=== PATIENT | female | born 1970 | race Hispanic/Latino ===

== ENCOUNTER 2016-07-05 11:17 | Emergency (ER) | payer MEDICAID ==
--- NOTE | 2016-07-05 13:37 | XRay Report ---
LEFT HAND: History: Pain after trauma. The bony architecture is intact. Bony alignment is normal. No soft tissue abnormalities are seen. The joint spaces appear preserved. IMPRESSION: Normal left hand.
[2016-07-05] MEDS ORDERED: NORCO 5/325 PO ONE (14:35)
--- NOTE | 2016-07-05 14:37 | Emergency Department Report ---
Upper Extremity - HPI Chief Complaint: Extremity Injury, Upper Stated Complaint: LEFT MIDDLE FINGER PAIN Time Seen by Provider: 07/05/16 14:04 Upper Extremity: Left Middle Finger (pain and swelling) Mechanism: Crush Severity: severe Symptoms: Yes Pain with Movement (left middle finger), Yes Limited Range of Movement (left middle finger), Yes Swelling (left middle finger), No Deformity , No Numbness, No Weakness, No Bruising/Ecchymosis, No Laceration or Abrasion Other History: This patient patient here complaining the left middle finger after injury. Reports pain is 9 and a 10 and took Motrin without any relief. He is reporting swelling and painful to move. Her blood pressure is elevated and she is on blood pressure medication but she says she didn't take this morning because she was intermittentpain. Denies any numbness or tingling. ED Review of Systems ROS: Stated complaint: LEFT MIDDLE FINGER PAIN Other details as noted in HPI Comment: All other systems reviewed and negative Constitutional: denies: chills, fever Respiratory: no symptoms reported Cardiovascular: denies: chest pain, palpitations, edema, syncope Gastrointestinal: denies: nausea, vomiting Musculoskeletal: joint swelling, arthralgia. denies: back pain Skin: denies: rash Neurological: denies: headache, numbness, paresthesias ED Past Medical Hx - Past Medical History Previous Medical History?: Yes Hx Hypertension: Yes Hx Heart Attack/AMI: Yes (2014) Hx Diabetes: Yes Hx Deep Vein Thrombosis: Yes Hx Kidney Stones: Yes Hx Asthma: Yes Hx COPD: Yes Additional medical history: DVT-not taking coumadin - Surgical History Past Surgical History?: Yes Hx Cholecystectomy: Yes Additional Surgical History: pelvis surgery. Left muscle of buttocks. IVC filter. TUBAL LIGATION. LITHOTRIPSY. STENT RIGHT KIDNEY - Family History Family history: hypertension - Social History Smoking Status: Current Every Day Smoker Substance Use Type: None - Medications Home Medications: Home Medications Medication Instructions Recorded Confirmed Last Taken Type oxyCODONE /ACETAMINOPHEN [Percocet 1 tab PO Q6HR PRN #12 tablet 03/09/15 Unknown Rx 5/325] traMADol [Ultram 50 MG tab] 50 mg PO Q6HR PRN #20 tablet 12/11/15 Unknown Rx Ibuprofen [Motrin 600 MG tab] 600 mg PO Q8H PRN #15 tablet 07/05/16 Unknown Rx Upper Extremity Exam - Exam General: Vital signs noted. No distress. Alert and acting appropriately. 46-year-old female well-nourished well-developed in no acute distress Head and Torso: No HEENT Abnormality, No Neck Tenderness, No Chest/Lungs Abnormality, No Abdominal Tenderness, No Back Tenderness Shoulder Exam: Yes Normal Range of Motion in Shoulder, No Shoulder Tenderness, No Clavicle Tenderness, No Shoulder Deformity, No AC Joint Tenderness Arm Exam: No Arm/Humerus Tenderness, No Arm Deformity Elbow: Yes Normal Range of Motion in Elbow, No Elbow Tenderness, No Elbow Deformity Forearm: No Forearm Tenderness, No Forearm Deformity, No Pain with Pronation, No Pain with Supination Wrist: Yes Normal ROM in Wrist, No Wrist Tenderness, No Wrist Deformity, No Snuffbox Tenderness, No Pain with Axial Thumb Compression Hand: Yes Digit Tenderness (tenderness to palpate and swelling to left middle finger. Full range of motion but reports painful to move.), Yes Normal ROM in Digit(s) (painful with flexion and extension left middle finger), No Hand Tenderness, No Hand Deformity, No Digit(s) Deformity, No Tendon Dysfunction CMS Exam: Yes Normal Distal Pulses, Yes Normal Capillary Refill, Yes Normal Distal Sensation, No Broken Skin ED Course Vital Signs 07/05/16 12:23 Temperature 98.6 F Pulse Rate 93 H Respiratory 16 Rate Blood Pressure 174/105 O2 Sat by Pulse 100 Oximetry - Reevaluation(s) Reevaluation #1: 07/05/16 15:11 Patient given [place] 5/325 2 tablets by mouth in emergency room. See procedure note for splinting - Orthopedic Splinting/Casting Injury #1 Side: left Upper Extremity Injury Location: finger (middle finger on the left side) Upper Extremity Immobilizer: aluminum form splint ED Medical Decision Making - Radiology Data Radiology results: report reviewed History report revealed no acute findings. - Medical Decision Making ED course: Patient received [place] 5/325 2 tablets in emergency rooms for left middle finger contusion. Discussed with her that x-ray of left hand showed no acute fracture or dislocation. I discussed with her diagnosis and treatment plan and she is in agreement. Patient discharged home in stable condition with prescription for Motrin. See procedure note for splinting. Encouraged her to rest, ice, compress and elevate the area for 72 hours. Critical care attestation.: If time is entered above; I have spent that time in minutes in the direct care of this critically ill patient, excluding procedure time. ED Disposition Clinical Impression: Arthralgia of left hand Contusion of left middle finger Qualifiers: Encounter type: initial encounter Damage to nail status: without damage Qualified Code(s): S60.032A - Contusion of left middle finger without damage to nail, initial encounter Injury of finger of left hand Qualifiers: Encounter type: initial encounter Qualified Code(s): S69.92XA - Unspecified injury of left wrist, hand and finger(s), initial encounter Disposition: DISCHARGED TO HOME OR SELFCARE Is pt being admited?: No Does the pt Need Aspirin: No Condition: Stable Instructions: Arthralgia (ED), Contusion in Adults (ED) Additional Instructions: Rest, ice, compress and elevate the area for 72 hours Follow up with orthopedic doctor if he is still experiencing finger pain after 3 days. Prescriptions: Ibuprofen [Motrin 600 MG tab] 600 mg PO Q8H PRN #15 tablet PRN Reason: Pain Referrals: BRIDGER CRUMP MD [Staff Physician] - 07/08/16 NICOLASA SARGENT MD [Primary Care Provider] - 07/08/16 Forms: Accompanied Note, Work/School Release Form(ED)
[2016-07-05 15:28] VITALS: BP 150/90
== END 2016-07-05 15:32 | disposition home or self-care (01) ==
LOC: ED 11:17
DX: S60.032A Contusion of left middle finger without damage to nail, initial encounter (principal); I10 Essential (primary) hypertension; I25.2 Old myocardial infarction; E11.9 Type 2 diabetes mellitus without complications; I82.409 Acute embolism and thrombosis of unspecified deep veins of unspecified lower extremity; J45.909 Unspecified asthma, uncomplicated; F17.200 Nicotine dependence, unspecified, uncomplicated; J44.9 Chronic obstructive pulmonary disease, unspecified; X58.XXXA Exposure to other specified factors, initial encounter; Y93.89 Activity, other specified; Y92.89 Other specified places as the place of occurrence of the external cause; Y99.8 Other external cause status

== ENCOUNTER 2016-12-12 17:11 | Emergency (ER) | payer MEDICAID ==
--- NOTE | 2016-12-12 21:17 | Emergency Department Report ---
ED Headache HPI - General Chief Complaint: Headache Stated Complaint: SHARP PAIN IN REAR OF HEAD Time Seen by Provider: 12/12/16 21:16 - History of Present Illness Initial Comments: 46-year-old female past medical history diabetes hypertension COPD DVTs with IVC filter, smoker, hyperlipidemia presents with complaint of sudden onset headache this afternoon while playing with her child. On exam patient is nontoxic appearing awake alert and oriented 3 does not appear to be in severe distress. Fully lucid and ambulatory but states that she ambulates with a cane. Accompanied by her son. Denies fever chills nausea vomiting photophobia phonophobia no palpitations no chest pain no nausea no vomiting no nuchal rigidity or neck rigidity and denies any recent head trauma or falls. Patient states that headache is posterior intermittent and throbbing last 5-10 minutes at a time and has been intermittent since approximately 3 PM this afternoon. Timing/Duration: 4-6 hours Quality: moderate Head Injury Location: occipital Modifying Factors: improves with: cold therapy Associated Symptoms: denies symptoms Allergies/Adverse Reactions: Allergies No Known Allergies Allergy (Verified 06/18/15 14:26) Home Medications: Ambulatory Orders oxyCODONE /ACETAMINOPHEN [Percocet 5/325] 1 tab PO Q6HR PRN #12 tablet 03/09/15 traMADol [Ultram 50 MG tab] 50 mg PO Q6HR PRN #20 tablet 12/11/15 Ibuprofen [Motrin 600 MG tab] 600 mg PO Q8H PRN #15 tablet 07/05/16 Naproxen 500 mg PO BID PRN #30 tablet 12/13/16 ED Review of Systems ROS: Stated complaint: SHARP PAIN IN REAR OF HEAD Other details as noted in HPI Constitutional: denies: chills, fever Eyes: denies: eye pain, eye discharge, vision change ENT: denies: ear pain, throat pain Respiratory: denies: cough, shortness of breath, wheezing Cardiovascular: denies: chest pain, palpitations Endocrine: no symptoms reported Gastrointestinal: denies: abdominal pain, nausea, diarrhea Genitourinary: denies: urgency, dysuria, discharge Musculoskeletal: denies: back pain, joint swelling, arthralgia Skin: denies: rash, lesions Neurological: headache (intermittent headache since 3 PM this afternoon). denies: weakness, paresthesias Psychiatric: denies: anxiety, depression Hematological/Lymphatic: denies: easy bleeding, easy bruising ED Past Medical Hx - Past Medical History Previous Medical History?: Yes Hx Hypertension: Yes Hx Heart Attack/AMI: Yes (2014) Hx Diabetes: Yes Hx Deep Vein Thrombosis: Yes Hx Kidney Stones: Yes Hx Asthma: Yes Hx COPD: Yes Additional medical history: DVT-not taking coumadin - Surgical History Past Surgical History?: Yes Hx Cholecystectomy: Yes Additional Surgical History: pelvis surgery. Left muscle of buttocks. IVC filter. TUBAL LIGATION. LITHOTRIPSY. STENT RIGHT KIDNEY - Social History Smoking Status: Current Every Day Smoker Substance Use Type: None - Medications Home Medications: Home Medications Medication Instructions Recorded Confirmed Last Taken Type oxyCODONE /ACETAMINOPHEN [Percocet 1 tab PO Q6HR PRN #12 tablet 03/09/15 Unknown Rx 5/325] traMADol [Ultram 50 MG tab] 50 mg PO Q6HR PRN #20 tablet 12/11/15 Unknown Rx Ibuprofen [Motrin 600 MG tab] 600 mg PO Q8H PRN #15 tablet 07/05/16 Unknown Rx Naproxen 500 mg PO BID PRN #30 tablet 12/13/16 Unknown Rx ED Physical Exam - General Limitations: No Limitations General appearance: alert, in no apparent distress - Head Head exam: Present: atraumatic, normocephalic - Eye Eye exam: Present: normal appearance, PERRL, EOMI - ENT ENT exam: Present: mucous membranes moist - Neck Neck exam: Present: normal inspection, full ROM (full neck flexion and extension on clinical exam) - Respiratory Respiratory exam: Present: normal lung sounds bilaterally. Absent: respiratory distress - Cardiovascular Cardiovascular Exam: Present: regular rate, normal rhythm. Absent: systolic murmur, diastolic murmur, rubs, gallop - GI/Abdominal GI/Abdominal exam: Present: soft, normal bowel sounds - Extremities Exam Extremities exam: Present: normal inspection - Back Exam Back exam: Present: normal inspection - Neurological Exam Neurological exam: Present: alert, oriented X3, CN II-XII intact, normal gait - Expanded Neurological Exam Expanded Patient oriented to: Present: person, place, time Cranial nerves: EOM's Intact: Normal, Facial Sensation: Normal Cerebellar function: Finger to Nose: Normal, Heel to Mendoza: Normal, Romberg: Normal Sensory exam: Upper Extremity Light Touch: Normal, Lower Extremity Light Touch: Normal Motor strength exam: RUE: 5, LUE: 5, RLE: 5, LLE: 5 DTR: bicep (R): 3+, bicep (L): 3+, tricep (R): 3+, tricep (L): 3+, knee (R): 3+ , knee (L): 3+, ankle (R): 3+, ankle (L): 3+ Best Eye Response ([place]any[place]): (4) open spontaneously Best Motor Response ([place]): (6) obeys commands Best Verbal Response (Danyel): (5) oriented [place] Total: 15 - Psychiatric Psychiatric exam: Present: normal affect, normal mood - Skin Skin exam: Present: warm, dry, intact, normal color. Absent: rash ED Course Vital Signs 12/12/16 17:16 Temperature 98.8 F Pulse Rate 79 Respiratory 16 Rate Blood Pressure 145/74 O2 Sat by Pulse 97 Oximetry ED Medical Decision Making - Lab Data Result diagrams: 12/12/16 21:19 12/12/16 21:19 - Medical Decision Making A/P: Acute headache 1-as patient complained of acute headache that was sudden onset my differential included subarachnoid hemorrhage. I discussed this with Dr. Mcgovern. As per Dr. Mcgovern obtaining a CTA head and neck would be of clinical value to image any potential aneurysm and/or intracranial hemorrhage. I discussed this with the patient's and explained my clinical concern. I also advised the patient that a lumbar puncture is the test of choice however patient declined to do this at this time. Patient is however amenable to doing a CTA of the head and neck which if normal while does not completely exclude the possibility of an intracranial hemorrhage does indicate that there is unlikely an intracranial hemorrhage at this time. Patient also has no cranial nerve deficits and is neurologically intact on clinical exam is fully lucid awake alert and oriented and ambulatory. [email or web address]= [email or web address]~150 2-CT noncontrast, CTA angiogram of head and neck unremarkable 3-labs unremarkable, urinalysis unremarkable 4-naproxen when necessary for headache, follow-up with primary care and neurology Critical care attestation.: If time is entered above; I have spent that time in minutes in the direct care of this critically ill patient, excluding procedure time. ED Disposition Clinical Impression: Acute headache Qualifiers: Headache type: tension-type Intractability: not intractable Qualified Code(s): G44.209 - Tension-type headache, unspecified, not intractable Disposition: DC-01 TO HOME OR SELFCARE Is pt being admited?: No Does the pt Need Aspirin: No Condition: Stable Instructions: Migraine Headache (ED) Additional Instructions: [email or web address] Prescriptions: Naproxen 500 mg PO BID PRN #30 tablet PRN Reason: Headache Referrals: ELAINE SAVAGE MD [Staff Physician] - 3-5 Days Forms: Accompanied Note, Work/School Release Form(ED) Time of Disposition: 01:03
[2016-12-12 21:42] LABS: Basophils % (Auto) 0.3 % (0.0-1.8); Eosinophils % (Auto) 2.2 % (0.0-4.3); Hematocrit 38.6 % (30.3-42.9); Hemoglobin 12.6 gm/dl (10.1-14.3); Mean Corpuscular HGB Conc 33 % (30-34); Mean Corpuscular Hemoglobin 27 pg (28-32); Mean Corpuscular Volume 84 fl (79-97); Platelet Count 317 K/mm3 (140-440); Red Blood Count 4.58 M/mm3 (3.65-5.03); Red Cell Distribution Width 16.1 % (13.2-15.2); White Blood Count 10.4 K/mm3 (4.5-11.0)
--- NOTE | 2016-12-12 21:45 | Cat Scan Report ---
FINAL REPORT PROCEDURE: CT HEAD/BRAIN WO CON TECHNIQUE: Computerized tomography of the head was performed without contrast material. HISTORY: headache worsening COMPARISON: No prior studies are available for comparison. FINDINGS: No CT evidence of intracranial mass, hemorrhage, acute territorial infarction, or hydrocephalus. The intracranial arteries are symmetric in density. Calvarium is intact. Visualized paranasal sinuses and mastoids are aerated. IMPRESSION: No CT evidence of acute abnormality
[2016-12-12 21:49] LABS: Anion Gap 17 mmol/L; BUN/Creatinine Ratio 30; Blood Urea Nitrogen 18 mg/dL (7-17); Calcium 9.5 mg/dL (8.4-10.2); Carbon Dioxide 26 mmol/L (22-30); Chloride 101.9 mmol/L (98-107); Glucose 119 mg/dL (65-100); Potassium 3.9 mmol/L (3.6-5.0); Sodium 141 mmol/L (137-145)
[2016-12-12 21:52] LABS: INR 0.88 (0.87-1.13)
[2016-12-12] MEDS ORDERED: TYLENOL PO ONE (21:58)
[2016-12-12 22:09] LABS: Bilirubin,Urine NEG (Negative); Blood,Urine LG (Negative); Ketones,Urine NEG (Negative); Leukocyte Esterase,Urine NEG (Negative); Mucus,Urine FEW /HPF; Nitrite,Urine NEG (Negative); Protein,Urine <15 mg/dL mg/dL (Negative); Urobilinogen,Urine < 2.0 mg/dL (<2.0)
[2016-12-12] MEDS ORDERED: NACL ONE (23:57)
--- NOTE | 2016-12-13 00:57 | Cat Scan Report ---
FINAL REPORT PROCEDURE: CT ANGIO HEAD TECHNIQUE: Computerized tomographic angiography of the head was performed after the IV injection of iodinated nonionic contrast including image processing. The image data was postprocessed using 2-dimensional multiplanar reformatted (MPR) and 3-dimensional (MIP and/or volume rendered) techniques. HISTORY: sudden onset headache COMPARISON: 12/12/2016 FINDINGS: Cerebrum: No evidence of hemorrhage, acute ischemia or mass. Cerebellum: No evidence of hemorrhage, acute ischemia or mass. Subarachnoid spaces and ventricles: Normal. Intracranial vessels: Carotid siphon: Normal. Anterior cerebral: Normal. Middle cerebral: Normal. Posterior cerebral:Normal. Vertebral arteries including basilar: Normal. Aneurysms: None. Dural sinuses: Normal. IMPRESSION: There is no intracranial arterial stenosis, thrombosis or aneurysm. There is no vascular malformation. There is no dural sinus thrombosis.
--- NOTE | 2016-12-13 01:30 | Cat Scan Report ---
FINAL REPORT PROCEDURE: CT ANGIO NECK TECHNIQUE: Computerized tomographic angiography of the neck was performed after the IV injection of iodinated nonionic contrast including image processing. The image data was postprocessed using 2-dimensional multiplanar reformatted (MPR) and 3-dimensional (MIP and/or volume rendered) techniques. HISTORY: sudden onset headache COMPARISON: No prior studies are available for comparison. Note: Assessment of carotid artery stenosis is based on measurement of the distal internal carotid artery diameter as the denominator for stenosis calculations and the [place] Symptomatic Carotid Endarterectomy Trial (NASCET) stenosis criteria . CPT 3100F FINDINGS: Sinuses: Normal . Non vascular cervical structures: No significant abnormality . Aortic arch: Normal . Right carotid artery: Normal . Left carotid artery: Normal . Vertebral arteries: Left vertebral artery is dominant.. IMPRESSION: There is no carotid artery stenosis, thrombosis or dissection. The left vertebral artery is dominant. This is a normal variation.
[2016-12-13 02:02] VITALS: BP 127/68
== END 2016-12-13 01:40 | disposition home or self-care (01) ==
LOC: ED 17:11
DX: G44.209 Tension-type headache, unspecified, not intractable (principal); I10 Essential (primary) hypertension; I25.2 Old myocardial infarction; E11.9 Type 2 diabetes mellitus without complications; J45.909 Unspecified asthma, uncomplicated; J44.9 Chronic obstructive pulmonary disease, unspecified; F17.200 Nicotine dependence, unspecified, uncomplicated
CPT/HCPCS: 36415; 70450; 70496; 70498; 80048; 81001; 81025; 84703; 85025; 85610; 99284; Q9967

== ENCOUNTER 2017-04-09 16:13 | Emergency (ER) | payer MEDICAID ==
[2017-04-09 23:43] LABS: Bilirubin,Urine NEG (Negative); Blood,Urine MOD (Negative); Color,Urine Yellow (Yellow); Nitrite,Urine NEG (Negative); Protein,Urine <15 mg/dL mg/dL (Negative); Urobilinogen,Urine < 2.0 mg/dL (<2.0); WBC,Urine < 1.0 /HPF (0.0-6.0)
--- NOTE | 2017-04-10 00:16 | XRay Report ---
FINAL REPORT EXAM: XR SPINE LUMBOSACRAL 2-3V HISTORY: low back pain TECHNIQUE: AP and lateral views of the lumbar spine were obtained. FINDINGS: The lumbar disc heights and alignment are well maintained. There is minimal endplate spurring at multiple levels. There is facet arthropathy changes the L5-S1 level. There is no evidence of fracture. There are threaded screws noted across the right SI joint. The soft tissues reveal a filter in the expected position of the IVC. There are surgical clips in the right upper quadrant of the abdomen. IMPRESSION: Facet arthropathy changes lower lumbar spine. No evidence of fracture or malalignment.
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
[2017-04-10 01:01] VITALS: BP 157/94
== END 2017-04-10 01:10 | disposition home or self-care (01) ==
LOC: ED 16:13
DX: M54.5 Low back pain (principal)
CPT/HCPCS: 72100; 81001; 87086; 99283

== ENCOUNTER 2018-03-22 23:29 | Emergency (ER) | payer MEDICARE ==
[2018-03-23 00:19] LABS: Bilirubin,Urine NEG (Negative); Blood,Urine SM (Negative); Color,Urine Straw (Yellow); Mucus,Urine FEW /HPF; Protein,Urine <15 mg/dL mg/dL (Negative); Urobilinogen,Urine < 2.0 mg/dL (<2.0)
[2018-03-23 00:32] LABS: Hematocrit 39.3 % (30.3-42.9); Mean Corpuscular HGB Conc 33 % (30-34); Mean Corpuscular Volume 85 fl (79-97); Platelet Count 408 K/mm3 (140-440); Red Blood Count 4.65 M/mm3 (3.65-5.03); Red Cell Distribution Width 15.6 % (13.2-15.2)
[2018-03-23 01:00] LABS: Albumin 4.4 g/dL (3.9-5); Calcium 9.8 mg/dL (8.4-10.2)
[2018-03-23 01:06] LABS: Band Neutrophils # (Manual) 0.2 K/mm3; Basophils % (Manual) 0 % (0.0-1.8); Total Cells Counted 100
[2018-03-23 01:07] LABS: Anisocytosis 1+; Ovalocytes 1+
[2018-03-23] MEDS ORDERED: ZOFRAN IV ONE (05:56)
[2018-03-23] MEDS ORDERED: MORPHINE IV ONE ×2 (05:56→06:00)
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
[2018-03-23 06:55] VITALS: BP 123/74
--- NOTE | 2018-03-23 07:18 | Cat Scan Report ---
FINAL REPORT EXAM: CT ANGIO CHEST HISTORY: luq ab pain with history of dvt not on antico TECHNIQUE: CT imaging obtained through the chest in pulmonary angiographic phase following intraveno us administration of contrast. Transaxial, Coronal and sagittal reformats with maximal intensity proj ections are provided. PRIORS: None. FINDINGS: Normal caliber main pulmonary artery. Well opacified pulmonary arterial tree. No pulmonary embolism. No pericardial effusion. Thoracic aorta is normal in course and caliber. No periaortic fluid or stranding. No pneumothorax, effusion or focal airspace disease. The central airways are patent. No bronchiectasi s. Imaged portion of the upper abdomen is remarkable for cholecystectomy. The superficial soft tissues are unremarkable. No acute bony abnormality or worrisome osseous lesions identified. IMPRESSION: No pulmonary embolism or other acute finding.
--- NOTE | 2018-03-23 07:37 | Cat Scan Report ---
FINAL REPORT EXAM: CT ABDOMEN PELVIS W CON HISTORY: abdominal pain TECHNIQUE: CT images are acquired through the Abdomen and Pelvis in late arterial and delayed phases following intravenous administration of contrast. Transaxial, coronal and sagittal reformations are provided. PRIORS: Chest CT of the same date FINDINGS: Please see chest CT of the same date. Cholecystectomy. The liver, pancreas, spleen, and adrenal glands are unremarkable. Diminutive left kidney with compensatory hypertrophy seen in the right kidney. No hydroureteronephros is or nephrolithiasis. Anteverted uterus. No free fluid in the pelvis. Small and large bowel are normal in caliber. Appendix is normal. No free air, free fluid, or lymphade nopathy identified. Aorta is normal in course and caliber. Infrarenal IVC filter. Right sacroiliac arthrodesis. Destructive arthropathy involving left hip with extensive adjacent hete rotopic calcification as well as a joint effusion that extends superiorly along the posterior aspect of the left iliac bone. Left gluteal and iliopsoas fatty atrophy. No acute fracture identified. IMPRESSION: No acute findings in the abdomen or pelvis. Destructive left hip arthropathy may be neurogenic or infectious. A joint effusion and periarticular fluid extend along the posterior aspect of the left iliac bone, and a possible air containing fluid c ollection measures 4.4 x 3.1 cm. Correlation with prior imaging and for infectious symptoms is reques salas. As warranted, consider aspiration if not previously performed. Diminutive left kidney with compensatory right renal hypertrophy. Dr. Clayton discussed findings with Dr. Garvin at 0632 central Time on 03/23/2018 immediately following the examination.
== END 2018-03-23 07:54 | disposition home or self-care (01) ==
LOC: ED 23:29
DX: R10.12 Left upper quadrant pain (principal); I10 Essential (primary) hypertension; I25.2 Old myocardial infarction; E11.9 Type 2 diabetes mellitus without complications; Z86.718 Personal history of other venous thrombosis and embolism; J44.9 Chronic obstructive pulmonary disease, unspecified; F41.9 Anxiety disorder, unspecified; Z87.442 Personal history of urinary calculi; F17.200 Nicotine dependence, unspecified, uncomplicated
CPT/HCPCS: 36415; 71275; 74177; 80053; 81001; 84484; 84703; 85007; 85025; 93005; 93010; 96374; 96375; 99284; J2270; J2405; Q9967

== ENCOUNTER 2018-05-16 10:32 | Outpatient (CLI) | payer MEDICARE ==
[2018-05-16 10:51] LABS: Hematocrit 38.4 % (30.3-42.9); Hemoglobin 12.8 gm/dl (10.1-14.3); Mean Corpuscular HGB Conc 33 % (30-34); Mean Corpuscular Volume 86 fl (79-97); Red Blood Count 4.47 M/mm3 (3.65-5.03); Red Cell Distribution Width 16.4 % (13.2-15.2)
[2018-05-16 11:19] LABS: Albumin 4.2 g/dL (3.9-5); Calcium 9.8 mg/dL (8.4-10.2); Chol/HDL Ratio 3.68 %
[2018-05-16 11:31] LABS: Platelet Count 280 K/mm3 (140-440)
--- NOTE | 2018-05-17 01:53 | Cat Scan Report ---
PROCEDURE: CT CHEST WO CON TECHNIQUE: Computerized axial tomography of the chest was performed without contrast material. This study is performed without intravenous contrast and the sensitivity for pathology, including neoplasm s, adenopathy, abscess, pulmonary embolism and aortic dissection, is reduced. CT DOSE LENGTH PRODUCT: mGycm HISTORY: PULMONARY NODULE COMPARISONS: None . FINDINGS: Heart and pericardium: Normal. Thoracic aorta: Normal. Pulmonary vasculature: Normal. Lymph nodes: No enlarged thoracic lymph nodes. Lungs: Normal. Pleural space: No effusion, thickening, or pneumothorax. Musculoskeletal structures: No significant abnormality. Upper abdominal structures: No significant abnormality. IMPRESSION: Normal examination. This document is electronically signed by Teresita Braxton DO., May 17 2018 01:51:47 AM ET
== END 2018-05-16 10:33 | disposition home or self-care (01) ==
LOC: CT 10:32
PROVIDERS: ATTEND Internal Medicine
DX: R91.1 Solitary pulmonary nodule (principal); I10 Essential (primary) hypertension; J44.9 Chronic obstructive pulmonary disease, unspecified; Z90.49 Acquired absence of other specified parts of digestive tract
CPT/HCPCS: 36415; 71250; 80053; 80061; 82785; 84436; 84443; 85027